=== PATIENT | male | born 1980 | race Two or more races ===

== ENCOUNTER 2024-10-30 22:56 | Emergency (ER) | payer OTHER, SELFPAY ==
--- OUTSIDE RECORDS SUMMARY | 2024-10-30 22:57 | XMS_ITS | Clinical Summary ---
Author Organization [facility] Address [place], [place] [address] Care Team Providers Care Case Finishing Machine Adjuster Name Role Phone Pcp, No Primary Care Provider Unavailabl e Allergies No known active allergies Medications ibuprofen (ADVIL; MOTRIN) 200 mg tablet Take 1 tablet by mouth 2 times daily. 0 03/10/2018 Active meloxicam 15 mg tabletIndication s:Chronic pain of both knees Take 1 tablet by mouth once daily. 30 tablet 03/10/2018 Active baclofen (LIORESAL) 10 mg tabletIndication s:Chronic pain of both knees,Pain of left hip joint,Bilateral hip joint arthritis,Patell ofemoral arthralgia of both knees Take 1 tablet by mouth 2 times daily. 60 tablet 03/19/2018 Active Active Problems No known active problems Immunizations Name Administration Dates Next Due Tdap 01/12/2011 Family History Medical History Relation Name Comments Diabetes Father Diabetes Maternal Grandfather Diabetes Paternal Grandfather Cancer-colon No Family History Heart Disease No Family History Relation Name Status Comments Father Maternal Grandfather Paternal Grandfather Social History Tobacco Use Types Packs/Day Years Used Date Smoking Tobacco: Former Cigarettes 0.5 10 0 12/24/1995 - 07/07/2005 Smokeless Tobacco: Never Tobacco Cessation:Counseling Given: Yes Alcohol Use Standard Drinks/Week Comments Yes 0 (1 standard drink = 0.6 oz pur e alcohol) twice per month PHQ-2 Answer Date Recorded PHQ-2 Score 0 12/13/2018 Sex and Gender Information Value Date Recorded Sex Assigned at Not on file Legal 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 Gender Identity Not on file Sexual Orientation Not on file Occupation Industry Job Start Date Job End Date Not on file Not on file Not on file Not on file Obstetrics History Last Filed Vital Signs Vital Sign Reading Time Taken Comments Blood Pressure 143/91 03/10/2018 2:08 PM CDT Pulse 70 03/10/2018 2:08 PM CDT Temperature 36.9 C (98.4 F) 09/05/2017 10:03 AM MISSION MANAGER Respiratory Rate - - Oxygen Saturation 96% 03/10/2018 2:08 PM CDT Inhaled Oxygen Concentration - - Weight 108.9 kg (240 lb) 03/19/2018 3:16 PM CDT Height 175.6 cm (5' 9.13) 03/19/2018 3:16 PM CD T Body Mass Index 35.3 03/19/2018 3:16 PM CDT Plan of Treatment Health Maintenance Due Date Last Done Comments HIV for age 15-65 1993 Hepatitis C screening for ag e 18-79 1996 Depression screening for age 12+ 03/10/2019 03/10/2018 BMI (ht and wt on same day) for age 18+ 03/19/2019 03/19/2018, 03/10/2018, 09/05/2017 Tetanus booster 01/12/2021 01/12/2011 Colonoscopy through age 75 2023 Lipids for age 45-75 2023 COVID-19 vaccine series (2023- season) 2024 Influenza for age 9-49 06/13/2024 Tdap Completed 01/12/2011 Pneumococcal series for age 6-49 Aged Out No longer eligible b ased on patient's age to complete this topic Insurance [facility] Care Teams Case Finishing Machine Adjuster Relationship Specialty Start Date End Date Pcp, No . PCP - General 05/14/14
[2024-10-30 23:07] VITALS: BP 153/100; PULSE 118; RESP 16; TEMP 36.9; O2SAT 94; BMI 36.2
--- NOTE | 2024-10-30 23:24 | ED_ITS ---
HPI - General Adult General Chief complaint: Unspecified Complaint, Adult Stated complaint: Rectum inflammation Time Seen by Provider: 10/30/24 23:19 Source: patient Mode of arrival: ambulatory Limitations: no limitations History of Present Illness HPI narrative: 44-year-old male coming in today with rectal pain. Patient states that he has felt discomfort for a couple of weeks but in the last couple of days the pain has become quite significant. He has a hard time sitting down. He describes a throbbing pain in the rectum. He denies any systemic symptoms like fevers or chills. No nausea or vomiting. This has never happened to him before. Related Data Home Medications ?Medication ?Instructions ?Recorded ?Confirmed No Known Home Medications 10/30/24 10/30/24 Allergies Allergy/AdvReac Type Severity Reaction Status Date / Time No Known Drug Allergies Allergy Verified 10/30/24 23:11 Review of Systems Status of ROS: Reports: 10 or more systems reviewed and unremarkable except as noted in History and below PFSH [facility] Social History Smoking Status: Never smoker How often do you have a drink containing alcohol: monthly or less AUDIT-C Alcohol total score: 1 Non-prescribed substance use: denies use Exam Narrative: Exam Narrative: Well-nourished well-developed patient in mild distress. Alert and oriented. Answers questions appropriately. Mood and affect are appropriate. Thoughts are goal oriented and rational. No tangential or magical thinking noted. Patient speaks in full sentences without needing to catch his breath. Rectum: Patient has a large, thrombosed external hemorrhoid from 8-10 o'clock. He has no pain on the right side. He has no tenderness outside of the hemorrhoid, no areas of fluctuance no evidence of a perirectal abscess or fissures. Skin: Well perfused without any obvious rashes. Const: Vital Signs, click to edit/add: Vital Signs - 24 hr 10/30/24 23:07 Temperature 98.5 F Pulse Rate [Left P ulse Oximeter] 118 H Respiratory Rate 16 Blood Pressure [Ri ght Upper Arm] 153/100 H Pulse Oximetry 94 Course Vital Signs Vital signs: Initial Vital Signs Temperature 98.5 F 10/30/24 23:07 Temperature Source Oral 10/30/24 23:07 Pulse Rate 118 H 10/30/24 23:07 Respiratory Rate 16 10/30/24 23:07 Blood Pressure 153/100 H 10/30/24 23:07 Blood Pressure Mean 117 H 10/30/24 23:07 Blood Pressure Position Standing 10/30/24 23:07 Pulse Oximetry 94 10/30/24 23:07 Vital Signs Temperature 98.5 F 10/30/24 23:07 Pulse Rate 118 H 10/30/24 23:07 Respiratory Rate 16 10/30/24 23:07 Blood Pressure 153/100 H 10/30/24 23:07 Pulse Oximetry 94 10/30/24 23:07 Temperature 98.5 F 10/30/24 23:07 Pulse Rate 118 H 10/30/24 23:07 Respiratory Rate 16 10/30/24 23:07 Blood Pressure 153/100 H 10/30/24 23:07 Pulse Oximetry 94 10/30/24 23:07 Medical Decision Making MDM Narrative Medical decision making narrative: 44-year-old male with a thrombosed hemorrhoid. We discussed incision and evacuation verses Sitz baths and pain medication. Patient wishes to do the latter and did not want to do an incision and evacuation today. IM Toradol was given in the ED today. He will be sent home with Toradol and [place]. We discussed Sitz bath, stool softeners. Discharge Plan Discharge Clinical Impression: External hemorrhoid, thrombosed Patient Disposition: Home, Self-Care Condition: Stable Instructions: Hemorrhoids (ED) Additional Instructions: Follow hemorrhoid instructions. Recommend daily MiraLax 1 scoop full daily until you have very soft stools and do not have to strain to have a bowel movement. Continue this until you follow- up with your primary care doctor. Will be sent home with 2 different pain medications: Toradol (ketorolac) is a anti-inflammatory that you should take 3 times per day, Percocet is a narcotic pain medication that you can take as needed. Ten tablets of Percocet [facility] Prescriptions: No Action No Known Home Medications Stand Alone Forms: MyHealth Info Instructions
[2024-10-30] MEDS: KETOROLAC 30 MG/ML inj 60 MG IM (23:30)
--- OUTSIDE RECORDS SUMMARY | 2024-10-30 23:46 | XMS_ITS | Clinical Summary ---
Author Organization [facility] Address [place], [place] [address] Care Team Providers Care Manager Fitness Name Role Phone Pcp, No Primary Care [...] on file Legal Sex Male 5:[address] Gender Identity Not on file Sexual Orientation Not on file Occupation Industry Job Start Date Job End Date Not on file Not on file Not on file Not on file Obstetrics History Last Filed Vital Signs Vital Sign Reading Time Taken Comments Blood Pressure 143/91 03/10/2018 2:08 PM CDT Pulse 70 03/10/2018 2:08 PM CDT Temperature 36.9 C (98.4 F) 09/05/2017 10:[address] ATTENDANT Respiratory Rate - - Oxygen Saturation 96% [...] patient's age to complete this topic Insurance [facility] Care Teams Manager Fitness Relationship Specialty Start Date End Date Pcp, No . PCP - General 05/14/14
== END 2024-10-30 23:56 | disposition home or self-care (01) ==
LOC: ED 23:45
PROVIDERS: Emergency Provider Family Medicine
DX: K64.5 Perianal venous thrombosis (principal)
CPT/HCPCS: 96372; 99283; 99284; J1885